=== PATIENT | female | born 1990 | race Caucasian/White ===

== ENCOUNTER → 2021-04-24 | Outpatient (CLI) | payer OTHER ==
[~2021-04-24] MED LIST: ACHD5005 PO; ONDA8TAB13 PO
--- NOTE | 2021-04-24 19:21 | Diagnostic Imaging Report ---
INDICATION: HEMATURIA, NAUSEA, FLANK PAIN. TECHNIQUE: Single supine view of the abdomen 7:18 PM CORRELATION STUDY: None FINDINGS: Imaging of the abdomen demonstrates the bowel gas pattern to be unremarkable and without evidence for obstruction. Moderate stool in the proximal colon. No significant differential air-fluid levels. No evidence for free air. No pathologic intraabdominal calcifications. IMPRESSION: 1. No definitive intra-abdominal calcifications. However, could be obscured by stool retention. Dictated by: Dictated on workstation # [id number]
== END ==
LOC: RAD 19:00
PROVIDERS: ATTEND Family Medicine
DX: R31.29 Other microscopic hematuria (principal); R11.0 Nausea; R10.9 Unspecified abdominal pain
CPT/HCPCS: 74018

== ENCOUNTER 2021-04-25 14:38 | Emergency (ER) | payer OTHER ==
[~2021-04-25] VITALS: Ht 160 cm; Wt 102.0 kg
[2021-04-25 15:44] VITALS: BP 117/75
[2021-04-25 17:22] LABS: BASOPHILS # (AUTO) 0.1 10^3/uL (0.0-0.1); BASOPHILS % (AUTO) 1 % (0-10); EOSINOPHILS # (AUTO) 0.2 10^3/uL (0.0-0.3); EOSINOPHILS % (AUTO) 2 % (0-10); HEMATOCRIT 40 % (35-52); HEMOGLOBIN 13.2 g/dL (11.5-16.0); LYMPHOCYTES # (AUTO) 2.5 10^3/uL (1.0-4.0); LYMPHOCYTES % (AUTO) 27 % (12-44); MEAN CORPUSCULAR HEMOGLOBIN 29 pg (25-34); MEAN CORPUSCULAR HGB CONC 33 g/dL (32-36); MEAN CORPUSCULAR VOLUME 89 fL (80-99); MEAN PLATELET VOLUME 9.9 fL (9.0-12.2); MONOCYTES # (AUTO) 0.7 10^3/uL (0.0-1.0); MONOCYTES % (AUTO) 7 % (0-12); NEUTROPHILS # (AUTO) 6.1 10^3/uL (1.8-7.8); NEUTROPHILS % (AUTO) 64 % (42-75); PLATELET COUNT 312 10^3/uL (130-400); WHITE BLOOD COUNT 9.5 10^3/uL (4.3-11.0)
[2021-04-25 17:26] LABS: BILIRUBIN,URINE NEGATIVE (NEGATIVE); CLARITY,URINE CLEAR; COLOR,URINE YELLOW; GLUCOSE, URINE (UA) NEGATIVE (NEGATIVE); KETONES,URINE NEGATIVE (NEGATIVE); LEUKOCYTE ESTERASE ,URINE TRACE (NEGATIVE); NITRITE,URINE NEGATIVE (NEGATIVE); PROTEIN,URINE NEGATIVE (NEGATIVE)
[2021-04-25 17:30] LABS: BACTERIA,URINE TRACE /HPF; RBC,URINE RARE /HPF; WBC,URINE 0-2 /HPF
--- NOTE | 2021-04-25 17:31 | ED GI ---
General Chief Complaint: Abdominal/GI Problems Stated Complaint: CT SCAN ABD/BACK PAIN, URINATING BLOOD Nursing Triage Note: pt presents today with chief complaint of back/abd pain. Pt reports being seen in this ER yesterday and was diagnosed with severe dehydration. Pt reports no improvement in symptoms except reduction of pain due to prescriptions received last night. *pt states she needs to be seen and evaluated as quick as possible because [place] to [place] tonight and wants to make sure she isn't deathly sick before leaving Source of Information: Patient Exam Limitations: No Limitations (BETARICE ZUNIGA APRN) History of Present Illness Date Seen by Provider: Apr 25, 2021 Time Seen by Provider: 17:30 Initial Comments Left flank pain with hematuria and urinary frequency x1 week. She is flying out of [facility] to go to [facility] for a wedding and she wants to make sure she is not going to in [facility]. Timing/Duration: 1-2 Days Severity/Quality: Moderate Radiation: No Radiation Activities at Onset: None (BEATRICE ZUNIGA APRN) Allergies and Home Medications Allergies Coded Allergies: No Known Drug Allergies (Unverified , 04/25/21) Home Medications Hydrocodone/Acetaminophen 1 Each Tablet, 1 TAB PO Q4H PRN for PAIN-MODERATE (5- 7) Prescribed by: BEATRICE ZUNIGA on 04/25/211757 Ondansetron 8 Mg Tab.rapdis, 8 MG PO Q6H Prescribed by: BEATRICE ZUNIGA on 04/25/211757 Patient Home Medication List Home Medication List Reviewed: Yes (BEATRICE ZUNIGA APRN) Review of Systems Review of Systems Constitutional: see HPI EENTM: No Symptoms Reported Respiratory: No Symptoms Reported Cardiovascular: No Symptoms Reported Gastrointestinal: See HPI, Abdominal Pain Genitourinary: See HPI Musculoskeletal: no symptoms reported Skin: no symptoms reported Psychiatric/Neurological: No Symptoms Reported Endocrine: No Symptoms Reported (BEATRICE ZUNIGA APRN) Past Pzpuzke-Mqgkgc-Grigal Hx Patient Social History Tobacco Use?: No Substance use?: No Alcohol Use?: No Pt feels they are or have been: No (BEATRICE ZUNIGA APRN) Physical Exam Vital Signs Vital Signs - First Documented 04/25/21 15:44 Temp 37.0 Pulse 82 Resp 18 B/P (MAP) 117/75 (89) (PHEONIX PALOMARES MD) Vital Signs Capillary Refill : Less Than 3 Seconds (BEATRICE ZUNIGA APRN) Height/Weight/BMI Height: '" Weight: lbs. oz. kg; 39.00 BMI Method: General Appearance: WD/WN, no apparent distress Neck: non-tender, full range of motion Respiratory: no respiratory distress, no accessory muscle use Gastrointestinal: normal bowel sounds, soft Extremities: normal range of motion, non-tender Neurologic/Psychiatric: alert, normal mood/affect, oriented x 3 Skin: normal color, warm/dry (BEATRICE ZUNIGA APRN) Progress/Results/Core Measures Results/Orders Lab Results Laboratory Tests Test 04/25/21 17:08 04/25/21 17:14 Range/Units Urine Color YELLOW Urine Clarity CLEAR Urine pH 6.0 5-9 Urine Specific [place] <=1.005 1.016-1.022 Urine Protein NEGATIVE NEGATIVE Urine Glucose (UA) NEGATIVE NEGATIVE Urine Ketones NEGATIVE NEGATIVE Urine Nitrite NEGATIVE NEGATIVE Urine Bilirubin NEGATIVE NEGATIVE Urine Urobilinogen 0.2 < = 1.0 MG/DL Urine Leukocyte Esterase TRACE H NEGATIVE Urine RBC (Auto) 3+ H NEGATIVE Urine RBC RARE /HPF Urine WBC 0-2 /HPF Urine Squamous Epithelial Cells 2-5 /HPF Urine Crystals NONE /LPF Urine Bacteria TRACE /HPF Urine Casts NONE /LPF Urine Mucus NEGATIVE /LPF Urine Culture Indicated NO White Blood Count 9.5 4.3-11.0 10^3/uL Red Blood Count 4.53 3.80-5.11 10^6/uL Hemoglobin 13.2 11.5-16.0 g/dL Hematocrit 40 35-52 % Mean Corpuscular Volume 89 80-99 fL Mean Corpuscular Hemoglobin 29 25-34 pg Mean Corpuscular Hemoglobin Concent 33 32-36 g/dL Red Cell Distribution Width 12.7 10.0-14.5 % Platelet Count 312 130-400 10^3/uL Mean Platelet Volume 9.9 9.0-12.2 fL Immature Granulocyte % (Auto) 0 % Neutrophils (%) (Auto) 64 42-75 % Lymphocytes (%) (Auto) 27 12-44 % Monocytes (%) (Auto) 7 0-12 % Eosinophils (%) (Auto) 2 0-10 % Basophils (%) (Auto) 1 0-10 % Neutrophils # (Auto) 6.1 1.8-7.8 10^3/uL Lymphocytes # (Auto) 2.5 1.0-4.0 10^3/uL Monocytes # (Auto) 0.7 0.0-1.0 10^3/uL Eosinophils # (Auto) 0.2 0.0-0.3 10^3/uL Basophils # (Auto) 0.1 0.0-0.1 10^3/uL Immature Granulocyte # (Auto) 0.0 0.0-0.1 10^3/uL Sodium Level 136 135-145 MMOL/L Potassium Level 3.9 3.6-5.0 MMOL/L Chloride Level 103 98-107 MMOL/L Carbon Dioxide Level 21 21-32 MMOL/L Anion Gap 12 5-14 MMOL/L Blood Urea Nitrogen 8 7-18 MG/DL Creatinine 0.95 0.60-1.30 MG/DL Estimat Glomerular Filtration Rate > 60 BUN/Creatinine Ratio 8 Glucose Level 92 70-105 MG/DL Calcium Level 9.2 8.5-10.1 MG/DL Corrected Calcium 9.0 8.5-10.1 MG/DL Total Bilirubin 0.3 0.1-1.0 MG/DL Aspartate Amino Transf (AST/SGOT) 24 5-34 U/L Alanine Aminotransferase (ALT/SGPT) 23 0-55 U/L Alkaline Phosphatase 60 40-136 U/L Total Protein 7.8 6.4-8.2 GM/DL Albumin 4.2 3.2-4.5 GM/DL Serum Test, Qualitative NEGATIVE NEGATIVE (PHOENIX PALOMARES MD) My Orders Orders - PHOENIX PALOMARES MD Ua Culture If Indicated (04/25/21 15:08) (PHOENIX PALOMARES MD) Vital Signs/I&O 04/25/21 15:44 Temp 37.0 Pulse 82 Resp 18 B/P (MAP) 117/75 (89) (PHOENIX PALOMARES MD) Blood Pressure Mean: 89 Departure Impression Primary Impression: Kidney stone on left side Disposition: 01 HOME, SELF-CARE Condition: Stable Departure-Patient Inst. Decision time for Depature: 17:48 (BEATRICE ZUNIGA APRN) Referrals: NO,LOCAL PHYSICIAN (PCP/Family) Primary Care Physician Patient Instructions: Kidney Stones in Adults Add. Discharge Instructions: 1. Pain medication as directed. Return to ER for any concerns. Follow-up with urology. All discharge instructions reviewed with patient and/or family. Voiced understanding. Scripts Hydrocodone/Acetaminophen (Hydrocodone-Acetamin 5-325 mg) 1 Each Tablet 1 TAB PO Q4H PRN for PAIN-MODERATE (5-7), #10 TAB Prov: BEATRICE ZUNIGA APRN 04/25/21 Ondansetron (Ondansetron Odt) 8 Mg Tab.rapdis 8 MG PO Q6H, #14 TAB Prov: BEATRICE ZUNIGA APRN 04/25/21 ATTENDING PHYSICIAN NOTE: I was physically present as attending physician in the emergency department during the care of this patient, but I was not directly involved in the decision making or delivery of care for this patient. (PHOENIX PALOMARES MD) BEATRICE ZUNIGA APRN Apr 25, 2021 17:31 PHOENIX PALOMARES MD Apr 26, 2021 06:24
[2021-04-25 17:38] LABS: ALBUMIN 4.2 GM/DL (3.2-4.5)
[2021-04-25 17:39] LABS: CHLORIDE 103 MMOL/L (98-107); POTASSIUM 3.9 MMOL/L (3.6-5.0); SODIUM 136 MMOL/L (135-145)
[2021-04-25 17:40] LABS: CALCIUM 9.2 MG/DL (8.5-10.1)
[2021-04-25 17:41] LABS: GLUCOSE 92 MG/DL (70-105); TOTAL PROTEIN 7.8 GM/DL (6.4-8.2)
[2021-04-25 17:42] LABS: CARBON DIOXIDE 21 MMOL/L (21-32)
[2021-04-25 17:43] LABS: BILIRUBIN,TOTAL 0.3 MG/DL (0.1-1.0)
[2021-04-25 17:44] LABS: ALKALINE PHOSPHATASE 60 U/L (40-136)
[2021-04-25 17:45] LABS: CREATININE SERUM 0.95 MG/DL (0.60-1.30); GFR ESTIMATED > 60
[2021-04-25 17:46] LABS: BUN/CREATININE RATIO 8
[2021-04-25 17:47] LABS: ALANINE AMINOTRANSFERASE 23 U/L (0-55)
[2021-04-25] MEDS ORDERED: ONDA8TAB13 PO (17:58)
[2021-04-25] MEDS ORDERED: ACHD5005 PO (17:58)
[2021-04-25] MEDS ORDERED: RX-ONDANSETRON 4 MG ODT (ZOFRAN) PPK #4 PO STA (18:01)
--- NOTE | 2021-04-25 18:04 | Diagnostic Imaging Report ---
PROCEDURE: CT urinary tract, rule out kidney stone. TECHNIQUE: Multiple contiguous axial images were obtained through the abdomen and pelvis without the use of intravenous contrast. Auto Exposure Controls were utilized during the CT exam to meet ALARA standards for radiation dose reduction. DATE: April 25, 2021. COMPARISON: [facility]UB April 24, 2021. INDICATION: 30-year-old female, hematuria. Abdominal pain for 2 days. FINDINGS: There are limitations for evaluation of the abdominal organs, neoplastic processes, abscess, and limited evaluation of the vasculature relating to the lack of intravenous contrast. The visualized portions of the lung apices are clear. The heart is not enlarged. There is no pericardial effusion. There is diffuse fatty infiltration of the liver. The liver is unremarkable in size and contour. There is fatty sparing adjacent to the gallbladder fossa. The gallbladder is unremarkable. There is no intrahepatic or extrahepatic bile duct dilation. The main pancreatic duct is not abnormally dilated. Limited noncontrast evaluation of the pancreatic parenchyma is unremarkable. The spleen is normal in size. The adrenal glands are unremarkable. Limited noncontrast evaluation of the renal parenchyma is unremarkable. The urinary collecting systems are not distended. There is a stone in the left mid ureter on axial image 72 measuring 3.3 mm in size. There is no additional ureteral stone. The urinary bladder is unremarkable in appearance. There is minimal free pelvic fluid which is potentially physiologic. The intestinal tract is not distended. There is no evidence to suggest acute appendicitis. There is no free intraperitoneal air. There is no drainable fluid collection. There is no identified abnormally enlarged lymph node in the abdomen or pelvis meeting CT size criteria for adenopathy. There are disc degenerative changes at L5-S1. There is no identified acute bony abnormality. IMPRESSION: CT abdomen and pelvis: 1. 3.3 mm stone in the left mid ureter without associated hydronephrosis. 2. Trace amount of free pelvic fluid which is potentially physiologic. 3. Diffuse fatty infiltration of the liver. Dictated by: Dictated on workstation # [id number]
== END 2021-04-25 18:19 | disposition home or self-care (01) ==
LOC: EDUNIT# 14:38 → ER 14:39
DX: N20.0 Calculus of kidney (principal)
CPT/HCPCS: 36415; 74176; 80053; 81000; 84703; 85025